=== PATIENT | male | born 1980 | race Two or more races ===

== ENCOUNTER 2024-08-24 16:44 | Inpatient (IN) | payer OTHER, MEDICAID ==
[~2024-08-24] VITALS: Ht 170.2 cm; Wt 61.5 kg
[2024-08-24] MEDS: MIDAZOLAM HCL 2 MG/2 ML VIAL IM ONE ×2 (17:13→21:10)
[2024-08-24] MEDS: SODIUM CHLORIDE 0.9% (SEPSIS BOLUS) IV ONE (17:47)
[2024-08-24] MEDS: PIPERACILLIN/TAZO 3.375G/50ML 50 ML IV ONE (17:47)
[2024-08-24 17:54] LABS: BG BASE EXCESS -1.9 mmol/L (-2.0-3.0); BG DEOXYHEMOGLOBIN 3.1 % (0.0-5.0); BG FRACTION INSPIRED OXYGEN 28; BG HCO3 ACT 22.8 mmol/L (21.0-28.0); BG METHEMOGLOBIN 0.3 % (0.5-1.5); BG OXYGEN SATURATION 96.9 % (94.0-98.0); BG OXYHEMOGLOBIN 96.6 % (94.0-98.0); BG PCO2 38.2 mmHg (35.0-48.0); BG PH 7.393 (7.350-7.450); BG PO2 91.2 mmHg (83.0-108.0); BG SAMPLE SITE LEFT BRACHIAL; BG TOTAL HEMOGLOBIN 11.2 g/dL (13.5-17.5); BG VENT MODE NASAL CANNULA
[2024-08-24 17:59] LABS: DIFFERENTIAL COMMENT 1; HEMOGLOBIN. 10.5 g/dL (14.0-18.0); MEAN CORPUSCULAR HEMOGLOBIN 26.9 pg (28.0-32.0); MEAN CORPUSCULAR HGB CONC 32.8 g/dL (31.0-37.0); MEAN CORPUSCULAR VOLUME 82.1 fL (80.0-94.0); MEAN PLATELET VOLUME 8.1 fl (7.4-10.4); PLATELET 291 x1000/uL (130-400); RED BLOOD CELL COUNT 3.89 mill/uL (4.7-6.1); RED CELL DISTRIBUTION WIDTH 17.3 % (11.6-14.6); WHITE BLOOD COUNT 16.8 x1000/uL (4.5-11.0)
[2024-08-24 18:01] LABS: CHLORIDE 108 mEq/L (98-107); POTASSIUM 3.7 mEq/L (3.5-5.1); SODIUM 134 mEq/L (136-145)
[2024-08-24 18:02] LABS: CALCIUM 8.8 mg/dL (8.7-10.4); CARBON DIOXIDE 21 mEq/L (21-32)
[2024-08-24 18:07] LABS: CREATININE 1.2 mg/dL (0.6-1.3); GLUCOSE 82 mg/dL (70-105); INR 1.1; PROTHROMBIN TIME 11.9 sec (9.6-11.0); UREA NITROGEN BLOOD 14 mg/dL (9-23)
[2024-08-24 18:08] LABS: ACETAMINOPHEN < 2 ug/mL (10-30); ALANINE AMINOTRANSFERASE 26 IU/L (10-49); ASPARTATE AMINOTRANSFERASE 31 IU/L (<34)
[2024-08-24 18:09] LABS: ALBUMIN 3.7 g/dL (3.2-4.8); BILIRUBIN DIRECT 0.1 mg/dL (<=3.0); BILIRUBIN TOTAL 0.4 mg/dL (0.1-1.0); CREATINE KINASE 180 IU/L (46-171); ETHANOL BLOOD < 10 mg/dL (<10); PROTEIN TOTAL 6.4 g/dL (6.0-8.3); TROPONIN I HIGH SENSITIVITY < 4 ng/L (3.0-53)
[2024-08-24] MEDS: ACETAMINOPHEN 325MG TABLET PO STA (19:12)
[2024-08-24] MEDS: VANCOMYCIN 1G PREMIX 200 ML IV ONE (19:12)
[2024-08-24 19:54] LABS: ANISOCYTOSIS 1+; ATYPICAL LYMPHOCYTES 2; NUCLEATED RED BLOOD CELLS 1 /100 WBC; PLATELET ESTIMATE NORMAL
[2024-08-24 22:26] VITALS: O2SAT 97
[2024-08-24 22:48] LABS: *AMPHETAMINES SCREEN URINE PRESUMPTIVE POSITIVE (NEGATIVE); *BARBITURATES SCREEN URINE NEGATIVE (NEGATIVE); *BENZODIAZEPINES SCREEN URINE PRESUMPTIVE POSITIVE (NEGATIVE); *COCAINE SCREEN URINE NEGATIVE (NEGATIVE); CANNABINOID URINE SCREEN NEGATIVE (NEGATIVE); CLARITY URINE TURBID (CLEAR); COLOR URINE YELLOW (YELLOW); ECSTASY MDMA SCREEN URINE CONF.TEST INDICATED (NEGATIVE); GLUCOSE URINE NEGATIVE (NEGATIVE); KETONES URINE TRACE (NEGATIVE); LEUKOCYTE ESTERASE URINE NEGATIVE (NEGATIVE); METHADONE URINE SCREEN NEGATIVE (NEGATIVE); NITRITE URINE NEGATIVE (NEGATIVE); OCCULT BLOOD URINE TRACE (NEGATIVE); OPIATES URINE SCREEN NEGATIVE (NEGATIVE); PH URINE 5.5 (4.5-8.0); PHENCYCLIDINE URINE SCREEN NEGATIVE (NEGATIVE); PROTEIN URINE 1+ (NEGATIVE); SPECIFIC GRAVITY URINE 1.028 (1.005-1.030); UROBILINOGEN URINE 0.2 E.U./dL (0.2-1.0)
[2024-08-24 23:00] LABS: BACTERIA URINE 4+; RBC URINE 0-2 /hpf (0-2); SQUAMOUS EPITHELIAL CELL URINE RARE /lpf (RARE/1+); WBC URINE 0-2 /hpf (0-2)
[2024-08-25] VITALS (7 sets, daily range): BP systolic 91–148; BP diastolic 43–66; PULSE 57–99; RESP 18–20; TEMP 36.3918–37.00296; O2SAT 95–98
[2024-08-25] MEDS: HALOPERIDOL LACTATE 5MG/ML VIAL IM PRN (05:18)
[2024-08-25] MEDS: SODIUM CHLORIDE 0.9% 1,000 ML IV SCH (07:18)
[2024-08-25] MEDS: PIPERACILLIN/TAZO 3.375G/100ML 100 ML IV SCH (08:42)
[2024-08-25] MEDS: VANCOMYCIN 750MG/150ML (BAXTER) IV SCH (12:38)
[2024-08-25] MEDS ORDERED: NALOXONE HCL 0.4MG/ML VIAL IV PRN (21:45)
[2024-08-25] MEDS: HYDROCODONE/ACETAMINOPHEN 5/325MG TABLET PO PRN (22:05)
[2024-08-26] VITALS: BP 107/60; PULSE 97; RESP 19; TEMP 36.89184; O2SAT 98
[2024-08-26 04:00] VITALS: BP 108/74; PULSE 82; RESP 19; TEMP 36.89184; O2SAT 98
[2024-08-26 08:47] VITALS: BP 109/70; PULSE 80; RESP 18; TEMP 36.50292; O2SAT 92
[2024-08-26 12:00] VITALS: BP 112/64; PULSE 91; RESP 18; TEMP 36.44736; O2SAT 95
[2024-08-26 16:00] VITALS: BP 115/69; PULSE 90; RESP 20; TEMP 36.55848; O2SAT 98
[2024-08-26 20:00] VITALS: BP 114/68; PULSE 96; RESP 20; TEMP 36.83628; O2SAT 98
[2024-08-27] VITALS: BP 113/81; PULSE 80; RESP 20; TEMP 38.16972; O2SAT 97
[2024-08-27 04:00] VITALS: BP 109/67; PULSE 79; RESP 19; TEMP 36.50292; O2SAT 98
[2024-08-27 08:31] VITALS: BP 120/73; PULSE 86; RESP 18; TEMP 37.05852; O2SAT 97
[2024-08-27 12:33] VITALS: BP 135/96; PULSE 92; RESP 20; TEMP 37.16964; O2SAT 98
[2024-08-27 16:18] VITALS: BP 111/70; PULSE 83; RESP 20; TEMP 36.55848; O2SAT 98
[2024-08-27] MEDS: PIPERACILLIN/TAZO 3.375G/50ML 50 ML IV SCH (18:39)
[2024-08-27 20:00] VITALS: BP 125/80; PULSE 100; RESP 20; TEMP 36.6696; O2SAT 96
[2024-08-27 22:00] LABS: HEMATOCRIT. 35.5 % (42.0-52.0); HEMOGLOBIN. 11.5 g/dL (14.0-18.0); MEAN CORPUSCULAR HEMOGLOBIN 26.4 pg (28.0-32.0); MEAN CORPUSCULAR HGB CONC 32.5 g/dL (31.0-37.0); MEAN CORPUSCULAR VOLUME 81.3 fL (80.0-94.0); MEAN PLATELET VOLUME 8.3 fl (7.4-10.4); PLATELET 304 x1000/uL (130-400); RED BLOOD CELL COUNT 4.37 mill/uL (4.7-6.1); RED CELL DISTRIBUTION WIDTH 16.9 % (11.6-14.6); WHITE BLOOD COUNT 17.3 x1000/uL (4.5-11.0)
[2024-08-27 22:01] LABS: DIFFERENTIAL COMMENT 1
[2024-08-27 22:03] LABS: CHLORIDE 103 mEq/L (98-107); POTASSIUM 4.8 mEq/L (3.5-5.1); SODIUM 140 mEq/L (136-145)
[2024-08-27 22:04] LABS: CALCIUM 9.3 mg/dL (8.7-10.4); CARBON DIOXIDE 30 mEq/L (21-32)
[2024-08-27 22:05] LABS: PROTHROMBIN TIME 11.2 sec (9.6-11.0)
[2024-08-27 22:09] LABS: CREATININE 0.9 mg/dL (0.6-1.3); GLUCOSE 95 mg/dL (70-105); UREA NITROGEN BLOOD 10 mg/dL (9-23)
[2024-08-27 22:10] LABS: ALANINE AMINOTRANSFERASE 26 IU/L (10-49); AMMONIA 54 uMol/L (<32); ASPARTATE AMINOTRANSFERASE 29 IU/L (<34)
[2024-08-27 22:11] LABS: ALBUMIN 3.7 g/dL (3.2-4.8); PHOSPHORUS 3.6 mg/dL (2.5-4.9)
[2024-08-27 22:12] LABS: BILIRUBIN TOTAL 0.3 mg/dL (0.1-1.0); PROTEIN TOTAL 6.3 g/dL (6.0-8.3)
[2024-08-27 22:17] LABS: ATYPICAL LYMPHOCYTES 17; BILIRUBIN DIRECT < 0.1 mg/dL (<=3.0); PLATELET ESTIMATE NORMAL; SMUDGE CELLS 1+
[2024-08-28] VITALS: BP 128/76; PULSE 99; RESP 20; TEMP 36.78072; O2SAT 97
[2024-08-28 04:00] VITALS: BP 115/70; PULSE 81; RESP 20; TEMP 36.44736; O2SAT 95
[2024-08-28 08:17] VITALS: BP 115/67; PULSE 91; RESP 20; TEMP 36.89184; O2SAT 97
[2024-08-28 10:05] LABS: HEMOGLOBIN. 12.3 g/dL (14.0-18.0); MEAN CORPUSCULAR HGB CONC 31.6 g/dL (31.0-37.0); MEAN CORPUSCULAR VOLUME 82.2 fL (80.0-94.0); PLATELET 301 x1000/uL (130-400); RED BLOOD CELL COUNT 4.74 mill/uL (4.7-6.1); RED CELL DISTRIBUTION WIDTH 17.3 % (11.6-14.6); WHITE BLOOD COUNT 19.1 x1000/uL (4.5-11.0)
[2024-08-28 10:09] LABS: CARBON DIOXIDE 29 mEq/L (21-32); CHLORIDE 104 mEq/L (98-107); POTASSIUM 4.3 mEq/L (3.5-5.1); SODIUM 139 mEq/L (136-145)
[2024-08-28 10:10] LABS: CALCIUM 9.2 mg/dL (8.7-10.4)
[2024-08-28 10:15] LABS: CREATININE 0.8 mg/dL (0.6-1.3); GLUCOSE 130 mg/dL (70-105); UREA NITROGEN BLOOD 11 mg/dL (9-23)
[2024-08-28 10:17] LABS: DIFFERENTIAL COMMENT 1; PHOSPHORUS 3.4 mg/dL (2.5-4.9)
[2024-08-28 11:58] VITALS: BP 117/62; PULSE 83; RESP 18; TEMP 36.83628; O2SAT 98
[2024-08-28] MEDS: VANCOMYCIN 750MG PREMIX 150 ML IV SCH (15:00)
[2024-08-28 16:04] VITALS: BP 110/65; PULSE 86; RESP 19; TEMP 36.78072; O2SAT 96
[2024-08-28 17:17] LABS: ANISOCYTOSIS 1+; ATYPICAL LYMPHOCYTES 25; PLATELET ESTIMATE NORMAL
[2024-08-28 20:00] VITALS: BP 106/62; PULSE 87; RESP 18; TEMP 36.50292; O2SAT 93
[2024-08-29] VITALS: BP 116/81; PULSE 90; RESP 20; TEMP 36.61404; O2SAT 97
[2024-08-29 04:00] VITALS: BP 106/69; PULSE 97; RESP 20; TEMP 36.61404; O2SAT 99
[2024-08-29 07:30] LABS: HEMATOCRIT. 38.5 % (42.0-52.0); HEMOGLOBIN. 12.5 g/dL (14.0-18.0); MEAN CORPUSCULAR HEMOGLOBIN 26.6 pg (28.0-32.0); MEAN CORPUSCULAR HGB CONC 32.4 g/dL (31.0-37.0); MEAN PLATELET VOLUME 8.2 fl (7.4-10.4); PLATELET 297 x1000/uL (130-400); RED CELL DISTRIBUTION WIDTH 17.1 % (11.6-14.6); WHITE BLOOD COUNT 20.4 x1000/uL (4.5-11.0)
[2024-08-29 07:44] LABS: CHLORIDE 102 mEq/L (98-107); POTASSIUM 4.5 mEq/L (3.5-5.1); SODIUM 138 mEq/L (136-145)
[2024-08-29 07:45] LABS: CALCIUM 9.2 mg/dL (8.7-10.4); CARBON DIOXIDE 29 mEq/L (21-32)
[2024-08-29 07:50] LABS: CREATININE 0.7 mg/dL (0.6-1.3); GLUCOSE 83 mg/dL (70-105); UREA NITROGEN BLOOD 13 mg/dL (9-23)
[2024-08-29 08:00] VITALS: BP 138/86; PULSE 84; RESP 18; TEMP 36.72516; O2SAT 97
[2024-08-29 08:16] LABS: DIFFERENTIAL COMMENT 1
[2024-08-29 12:00] VITALS: BP 129/74; PULSE 82; RESP 20; TEMP 36.61404; O2SAT 100
[2024-08-30 14:59] LABS: ANISOCYTOSIS 1+; PLATELET ESTIMATE NORMAL
== END 2024-08-29 18:00 | disposition left against medical advice (07) | DRG 52 ==
LOC: ER 16:44 → EDBEDREQTM 23:06 → EDBEDREQ 23:06 → EDBD 08-25 06:09 → 7WST 08-25 06:09
PROVIDERS: ADMIT Internal Medicine; ATTEND Internal Medicine
PROC: 4A00X4Z Measurement of Central Nervous Electrical Activity, External Approach (ICD-10-PCS; principal; 2024-08-29)
DX: G92.8 Other toxic encephalopathy (principal); E72.20 Disorder of urea cycle metabolism, unspecified; D64.9 Anemia, unspecified; I10 Essential (primary) hypertension; Z20.822 Contact with and (suspected) exposure to COVID-19; D72.829 Elevated white blood cell count, unspecified; Z53.29 Procedure and treatment not carried out because of patient's decision for other reasons; F15.19 Other stimulant abuse with unspecified stimulant-induced disorder; T43.625A Adverse effect of amphetamines, initial encounter; R32 Unspecified urinary incontinence; R00.0 Tachycardia, unspecified; Z53.20 Procedure and treatment not carried out because of patient's decision for unspecified reasons; Z78.1 Physical restraint status; Y92.89 Other specified places as the place of occurrence of the external cause
CPT/HCPCS: 36415; 36600; 71045; 80048; 80076; 80202; 80305; 80307; 80320; 80329; 81003; 82140; 82375; 82550; 82805; 83605; 83735; 83880; 84100; 84145; 84484; 85025; 87426; 87804; 93005; 97161; 97166; 99291; J1630; J2250; J2543; J3370; J7030; G0480